=== PATIENT | male | born 1960 | race Caucasian/White ===

== ENCOUNTER 2017-09-26 07:44 | Observation (INO) ==
[2017-09-26] MEDS ORDERED: Ondansetron 4 MG/2 ML VIAL IVP ONE (08:02)
--- NOTE | 2017-09-26 08:07 | Emergency Department Note ---
Disposition Clinical Impression: Esophageal obstruction due to food impaction Food impaction of esophagus Qualifiers: Encounter type: initial encounter Qualified Code(s): T18.128A - Food in esophagus causing other injury, initial encounter Disposition: Home, Self-Care Condition: Good Instructions: Food Impaction (ED) Reasons to Return/Additional Instructions: Please follow up with your primary care provider at the next available appointment. I have provided information to the [facility]. Please return to the emergency department if you have any worsening of your symptoms including abdominal pain, vomiting, diarrhea, chest pain, shortness of breath or any other symptoms that may be concerning to you. Referrals: [facility] [Outside] Chris Ornelas DO [Primary Care Provider] - [facility] [Provider Group] Forms: ED Satisfaction Letter Time of Disposition: 10:21 General Adult HPI - General Chief complaint: ED Skin/Abscess/Foreign Body Stated complaint: possible food bolus Time Seen by Provider: 09/26/17 07:51 Source: patient, family Mode of arrival: ambulatory Limitations: no limitations Nursing Notes Reviewed: Yes Vital Signs Reviewed: Yes - History of Present Illness HPI Narrative: Patient is a 57-year-old male that presents the emergency department due to concern for possible food bolus in his esophagus. Patient states that yesterday evening around 1930 he was eating chicken and felt like something got stuck. States that he began having discomfort in his low chest epigastric region. Vision states that he did not eat anything further at that time. Patient states that he has been unable to drink any fluids because they come right back up. States that he has had difficulty swallowing his own secretion is been spitting into a bucket. Patient states that it is not painful is just a discomfort that is been constant since dinnertime last night. Patient denies ever having anything like this in the past or any interventions for food bolus. Pain Scale: 0 - Related Data Home Medications Medication Instructions Recorded Confirmed No Known Home Drugs 09/26/17 09/26/17 Allergies Allergy/AdvReac Type Severity Reaction Status Date / Time No Known Allergies Allergy Verified 09/26/17 07:45 All systems ED: reviewed and negative except as stated. Cardiovascular: Denies: chest pain Respiratory: Denies: dyspnea Gastrointestinal: Reports: abdominal pain (epigastric discomfort), other ( Cannot swallow water or his own secretions) Physical Exam - General Limitations: no limitations General appearance: alert, in no apparent distress, other (Patient is spitting into bucket) - Head Head exam: atraumatic, normocephalic - Eye Eye exam: Present: normal appearance, EOMI - Respiratory Respiratory exam: Present: normal lung sounds bilaterally. Absent: respiratory distress, wheezes - Cardiovascular Cardiovascular exam: Present: regular rate, normal rhythm, normal heart sounds, +S1, +S2 - Abdominal Exam Abdominal exam: Present: soft, Non-Tender, normal bowel sounds - Neurological Exam Neurological exam: Present: alert, oriented X3 - Psychiatric Psychiatric exam: Present: normal affect, normal mood - Skin Skin exam: Present: warm, dry, intact Course - Consultations Consultation #1: Due to the patient having a failed attempt of glucagon I called and spoke with Dr. Butts on-call endoscopist and he stated that he would see the patient. He requested that a chest x-ray be performed. This will be done here in the emergency department. Time: 08:45 Vital Signs Temperature 97.7 F 09/26/17 07:45 Pulse Rate 82 09/26/17 07:45 Respiratory Rate 16 09/26/17 07:45 Blood Pressure 152/91 09/26/17 07:45 O2 Sat by Pulse Oximetry 94 09/26/17 07:45 Temperature 97.7 F 09/26/17 08:00 Pulse Rate 80 09/26/17 09:30 Respiratory Rate 20 09/26/17 09:30 Blood Pressure 140/92 09/26/17 09:30 O2 Sat by Pulse Oximetry 98 09/26/17 09:30 Oxygen Delivery Oxygen Delivery Room Air Medical Decision Making - [facility] Narrative Medical decision making narrative: Due to the patient presenting to the emergency department for epigastric discomfort after eating chicken there is concern for possible food bolus. We will give the patient a dose of glucagon and Zofran here in the emergency department. If this is unsuccessful we will discuss this case with endoscopy. Chest x-ray showed no acute process Per radiology. The glucagon was unsuccessful at passage of the possible food bolus. I called and spoke with the on-call GI physician for endoscopy. Patient will be taken to endoscopy for evaluation of possible food bolus. Final disposition of the patient will be determined by the endoscopist. Patient will be discharged from the emergency department to endoscopy at this time. Patient is stable at the time of discharge to endoscopy. - Radiology Data Radiology results reviewed: Yes I reviewed the patient's radiology results. Chest X-Ray 09/26/17 08:48 IMPRESSION: Normal appearing chest. No acute abnormality identified. D/ / Douglas Pemberton MD / Douglas Pemberton MD Interpreting Provider: Douglas Pemberton MD
--- NOTE | 2017-09-26 08:11 | Emergency Department Note ---
Disposition Clinical Impression: Esophageal obstruction due to food impaction Disposition: Still a Patient Referrals: Chris Ornelas DO [Primary Care Provider] - Forms: ED Satisfaction Letter General Adult HPI - General Chief complaint: ED Skin/Abscess/Foreign Body Stated complaint: possible food bolus Time Seen by Provider: 09/26/17 07:51 Source: patient, family Mode of arrival: ambulatory Limitations: no limitations - History of Present Illness HPI Narrative: Attestation note I examined this patient and my medical decision-making was reviewed with the emergency medicine resident. I agree with the documented findings, disposition and treatment plan as described except to the extent set forth below. Patient seen with emergency medicine resident Dr. Les Rodriguez, Please see a copy of his note for details of the H&P, ED evaluation, management and disposition. I have independently evaluated the patient and confirmed appropriate portions of the history and physical exam. Briefly: 57-year-old male presents after eating chicken last night feels like it stuck in his throat esophagus substernally. Patient is unable to tolerate his secretions. He is able to phonate normally. He is afebrile with stable vital signs. This has not happened to him before. No known history of esophageal stricture or EGD procedures in past. We will try patient on 1 mg of IV glucagon and to reassess if unsuccessful we will contact the endoscopist microphone operator for EGD. Disposition pending Pain Scale: 0 - Related Data Home Medications Medication Instructions Recorded Confirmed No Known Home Drugs 09/26/17 09/26/17 Allergies Allergy/AdvReac Type Severity Reaction Status Date / Time No Known Allergies Allergy Verified 09/26/17 07:45 Cardiovascular: Denies: chest pain Respiratory: Denies: dyspnea Gastrointestinal: Reports: abdominal pain (epigastric discomfort), other ( Cannot swallow water or his own secretions) Past Medical History - Past Medical History Medical history: Reports: no medical history Psychiatric history: Reports: no psych history - Social History Smoking Status: Never smoker Smokeless Tobacco Status: No Alcohol use: Reports: recent Drug use: Reports: none Physical Exam - General Limitations: no limitations General appearance: alert, in no apparent distress, other (Patient is spitting into bucket) Course Vital Signs Temperature 97.7 F 09/26/17 07:45 Pulse Rate 82 09/26/17 07:45 Respiratory Rate 16 09/26/17 07:45 Blood Pressure 152/91 09/26/17 07:45 O2 Sat by Pulse Oximetry 94 09/26/17 07:45 Temperature 97.7 F 09/26/17 08:00 Pulse Rate 82 09/26/17 08:00 Respiratory Rate 16 09/26/17 08:00 Blood Pressure 152/91 09/26/17 08:00 O2 Sat by Pulse Oximetry 94 09/26/17 08:00 Oxygen Delivery Oxygen Delivery Room Air
[2017-09-26] MEDS ORDERED: *HR* Succinylcholine 200 MG/10 ML VIAL IVP ONE (10:09)
[2017-09-26] MEDS ORDERED: *HR* FentaNYL (PF) 100 MCG/2 ML VIAL ONE (10:09)
[2017-09-26] MEDS ORDERED: Lidocaine -MPF 2% 2 ML VIAL ONE (10:09)
[2017-09-26] MEDS ORDERED: *HR* Propofol 200 MG/20 ML VIAL IVP ONE (10:09)
[2017-09-26] MEDS ORDERED: Dexamethasone 4 MG/ML VIAL ONE (10:09)
[2017-09-26] MEDS ORDERED: Ondansetron 4 MG/2 ML VIAL ONE (10:09)
[2017-09-26] MEDS ORDERED: *HR* Midazolam HCl 2 MG/2 ML VIAL ONE (10:09)
--- NOTE | 2017-09-26 10:47 | Anesthesia Evaluation PreOp ---
Date of Encounter: 09/26/17 Time of Encounter: 10:45 - Past History Planned Operation: EGD for food bolus Cardiac History: Denies any Significant Hx Pulmonary History: Former smoker [employer] History: Denies Any Significant HX Other Medical History: Denies Any Significant HX Anesthesia History: No Prior Anesthetic Complications, Past Anesthesia ( colonoscopy) Alcohol Use: recent Drug use: none Medications and Allergies No Known Home Drugs 09/26/17 [History] 3 Allergy/AdvReac Type Severity Reaction Status Date / Time No Known Allergies Allergy Verified 09/26/17 07:45 - Meds/Allergy Pre-op Review Medications Reviewed: Yes Allergies Reviewed: Yes Beta Blockers on Current Med List: No Anesthesia Results - Imaging Chest x-ray: report reviewed (no acute abnormality) Anesthesia Exam Last Vital Signs Temp 97.8 F 09/26/17 10:39 Pulse 86 09/26/17 10:39 Resp 20 09/26/17 10:39 BP 138/90 09/26/17 10:39 Pulse Ox 99 09/26/17 10:39 Weight: 95 kg NPO (# of Hours): > 8 hrs - HEENT Pupil (Motor): Pupils equal, EOMI Mallampati: III Teeth: Normal Oral Opening: Greater than 3 - [employer] LOC: Oriented - Cardiac Rhythm: Regular - Pulmonary Breath Sounds: bilateral Clear Respiratory Effort: Symmetrical Anesthesia Assess/Plan ASA Score: 2 Modified [place] Scale for Level of Consciousness: Cooperative, oriented, and tranquil Anesthetic Plan: General Monitoring Plan: Standard Monitors Recovery Plan: PACU
[2017-09-26] MEDS ORDERED: cefTRIAXone 2,000 MG in 0.9 % Sodium Chloride Mini Bag 100 ML IVP ONE (11:30)
[2017-09-26] MEDS ORDERED: *HR* EPINEPHrine 1 MG/10 ML SYRINGE ONE (11:56)
[2017-09-26] MEDS ORDERED: Pantoprazole 80 MG in 0.9 % Sodium Chloride 50 ML IVPB ONE (11:58)
[2017-09-26] MEDS ORDERED: *HR* EPINEPHrine 1 MG/10 ML SYRINGE INTRATRACH PRN (12:01)
--- NOTE | 2017-09-26 12:04 | Gastroenterology Consult Note ---
Date of Encounter: 09/26/17 Time of Encounter: 10:00 - Assessment and plan (1) Esophageal obstruction due to food impaction Current Visit: Yes Status: Acute (2) Food impaction of esophagus Current Visit: Yes Status: Acute Qualifiers: Encounter type: initial encounter Qualified Code(s): T18.128A - Food in esophagus causing other injury, initial encounter - Time Spent With Patient Total time spent is greater than 50% in coordination of care (as documented) at patient's floor/unit and/or counseling patient: 25 - 35 minutes GI History of Present Illness - Data of Consult Requesting Physician: Evan Butts MD - Consult Narrative Reason for consult: Foreign body esophagus History of present illness: Mr. Clinton is a 57 year old male who ate chicken at home last night around 7 pm - and started feeling uncomfortable almost immediately. Cant swallow his saliva and keep it down. He struggled last night and finally came here this morning and we were called. He confirms dysphagia to solids for a while but, never choked like this before. Drank 2 beers yesterday afternoon. Took 2 Aleve in the morning for a headache yesterday. Drank heavily from age 19 to 28. Now drinks wine each evening - just a glass. 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 He has never been hospitalized before. No CAD, DM or any other known systemmic problems. Spitting up actively during the interview. CXR PA and lateral negative from earlier this morning. PLAN: Emergent EGD with disimpaction of FB planned (chicken). Patient has had this for 17 hours. Explained to both him and his , of increased risk of perforation of esophagus and possible surgery should that happen. Complete obstruction anticipated due to inability to keep even saliva down. Arrangements for general anesthesia made. Further recommendations post EGD. Past Med Surg Social Fam HX - Past Medical History Medical history: no medical history Psychiatric history: no psych history - Social History Smoking Status: Never smoker Smokeless Tobacco Status: No Alcohol use: recent Drug use: none - Gastrointestinal NSAID use: yes Anticoagulation Use: No Number of BM Per Day: 1 Gastrointestinal: Present: as per HPI, heartburn - Constitutional Vitals: Temp Pulse Resp BP Pulse Ox 97.7 F 96 18 134/91 92 09/26/17 12:00 09/26/17 12:00 09/26/17 12:00 09/26/17 12:00 09/26/17 12:00 Results - Diagnostic Studies Chest x-ray Status: image reviewed by me Consult Discharge Plan - Plan Referrals: Chris Ornelas DO [Primary Care Provider] -
[2017-09-26] MEDS ORDERED: Naloxone 0.4 MG/ML INJ IVP PRN (12:26)
--- NOTE | 2017-09-26 12:26 | Anesthesia Evaluation Post Op ---
Date of Encounter: 09/26/17 Time of Encounter: 12:26 - Vital Signs Vital Signs: Last Vital Signs Temp 98.7 F 09/26/17 12:22 Pulse 92 09/26/17 12:22 Resp 18 09/26/17 12:22 BP 133/89 09/26/17 12:22 Pulse Ox 92 09/26/17 12:22 - Lungs Lungs: Clear Ascult./Percussion - Airway Airway: Non-obstructed - Cardiovascular Regular Rate - Mental Status Mental Status: Alert & Oriented, Answers Appropriately - Pain Pain Scale: 2 - Nausea Vomiting Nausea Vomiting: Not Present - Hydration Hydration: NPO - Discharge PostOp Status: Transfer Patient to floor
--- NOTE | 2017-09-26 12:30 | Internal Med History&Physical ---
<IrisCoco Tejinder - Last Filed: 09/26/17 12:54> Date of Encounter: 09/26/17 Time of Encounter: 12:29 Internal Medicine - H&P: HPI Chief complaint: Food bolus in esophagus Admitted From: Home Plans for Post Hospital Care: Home History of present illness: Mr. Clinton is a 57 year old male with only hx of past smoker. Presented to the ED today with c/o of food being stuck in his esophagus since yesterday after eating chicken. The patient stated that while eating dinner he had a piece of chicken, stuck in his throat, since then he has been unable to swallow any liquids or his saliva. Patient indicated he had been spitting those fluids out. Patient was taken to surgery with Dr. Butts, EGD in which food in the esophagus was removed and chronic gastritis was found biopsy was taken at that time patient will be nothing by mouth started on a PPI and did receive 1 dose of Rocephin in PACU. Patient to be monitored overnight with possible discharge tomorrow. The patient is awake and alert. O2 sat 89-90%, oxygen will be placed to maintain 94% o2 saturation. The patient denies pain and discomfort. Labs for morning. Past Med Surg Social Fam HX - Past Medical History Medical history: no medical history Psychiatric history: no psych history - Social History Smoking Status: Never smoker Smokeless Tobacco Status: No Alcohol use: recent Drug use: none Internal Medicine - H&P: Meds No Known Home Drugs 09/26/17 [History] 3 Allergy/AdvReac Type Severity Reaction Status Date / Time No Known Allergies Allergy Verified 09/26/17 11:39 All Systems PM: A 10-system review of systems was performed and is negative for pertinent findings except as documented above in the HPI. - Constitutional Constitutional: no chills, no fever(s), no night sweats - EENT Eyes: no change in vision, no discharge, no pain, no photophobia Ears: no ear discharge, no ear pain, no tinnitus Nose, mouth and throat: dysphagia (D/t food bolus in esophagus), neck pain, no nasal discharge, no sore throat - Cardiovascular Cardiovascular ROS IM: no chest pain, no diaphoresis, no dyspnea, no lightheadedness, no palpitations, no syncope - Respiratory Respiratory: no cough, no dyspnea, no wheezing, no excessive phlegm production - Gastrointestinal Gastrointestinal: no abdominal pain, no diarrhea, no hematemesis, no hematochezia, no melena, no nausea, no vomiting - Musculoskeletal Musculoskeletal ROS IM: no numbness, no tingling - Integumentary Integumentary IM: no rash, no unusual bruising - Neurological Neurological ROS: no confusion, no convulsions, no focal weakness, no numbness, no tingling, no tremor(s) - Hematologic/Lymphatic Hematologic/Lymphatic: no easy bruising - Constitutional Vitals: Temp Pulse Resp BP Pulse Ox 98.7 F 92 18 133/89 92 09/26/17 12:22 09/26/17 12:22 09/26/17 12:22 09/26/17 12:22 09/26/17 12:22 General appearance: Present: A&O X 3 - Head Head exam: Present: atraumatic, normocephalic - Eye Eye exam: Present: PERRL, conjuntiva pink, sclera anicteric Pupils: Present: PERRL - Neck Neck exam general surgery: Present: supple, trachea midline. Absent: lymphadenopathy - Respiratory Respiratory exam: Present: CTAB (O2 sat 90%, oxygen prn). Absent: accessory muscle use, rales, rhonchi, wheezes - Cardiovascular Cardiovascular exam: Present: RRR, +S1, +S2. Absent: diastolic murmur, gallop, rubs, systolic murmur - GI/Abdominal GI/Abdominal exam: Present: normal bowel sounds, soft, no peritoneal signs. Absent: distended, tenderness - Extremities Exam Extremities exam: Present: warm, radial pulses palpable and symmetrical. Absent : calf tenderness, cyanotic, pedal edema - Neurological Exam Neurological exam: Present: CN II-XII intact, oriented X3, no focal deficits. Absent: pronater drift, facial droop, speech deficit - Skin Skin exam: Present: dry, intact - Assessment and plan (1) Food impaction of esophagus Current Visit: Yes Status: Acute Qualifiers: Encounter type: initial encounter Qualified Code(s): T18.128A - Food in esophagus causing other injury, initial encounter (2) Esophageal obstruction due to food impaction Current Visit: Yes Status: Acute Assessment and plan: Dr. Butts managing. Food bolus removed via EGD. Patient is pain-free at this time NPO Oxygen prn to keep sats gt 94% History of smoking-Quit (3) Chronic gastritis Current Visit: Yes Status: Acute Assessment and plan: Former smoker EGD revealed chronic gastritis Will start the patient on PPI as recommended by Dr. Butts. Qualifiers: Gastritis bleeding: presence of bleeding unspecified Qualified Code(s): K29.50 - Unspecified chronic gastritis without bleeding - Time Spent With Patient Total time spent is greater than 50% in coordination of care (as documented) at patient's floor/unit and/or counseling patient: less than 15 minutes <Tiffany Rose - Last Filed: 09/26/17 14:13> Date of Encounter: 09/26/17 Time of Encounter: 13:30 Internal Medicine - H&P: HPI History of present illness: Mr. Clinton is a 57 year old male All Systems PM: A 10-system review of systems was performed and is negative for pertinent findings except as documented above in the HPI. - Constitutional Vitals: Temp Pulse Resp BP Pulse Ox 98.7 F 92 18 133/89 92 09/26/17 12:22 09/26/17 12:22 09/26/17 12:22 09/26/17 12:22 09/26/17 12:22 - Attending Attestation I examined this patient and my medical decision-making was reviewed with the Nurse Practitioner. I agree with the documented findings, disposition and treatment plan as described with any changes as documented below. 57-year-old male presented to the ER after choking on some food last night with continued abdominal discomfort and increased salivation. He was evaluated by GI and taken to the OR for upper GI endoscopy. He was found to have some gastritis and esophageal tear and food particles were removed. He is feeling much better now. He denies any chest pain or palpitations. Abdominal discomfort is improving. On examination, patient is awake and alert. Abdomen is soft, nontender. Family history reviewed and found to be noncontributory at this time. Esophageal obstruction due to choking on food: Status post upper GI endoscopy. Observation overnight. Keep nothing by mouth for now. Place patient on PPI. Follow GI recommendations. Will repeat chest x-ray tomorrow to look for any aspiration pneumonitis or pneumonia. Hypoxia while lying down: Patient having episodes of hypoxia when he falls asleep. He may have underlying sleep apnea. Recommended sleep study as outpatient. - Assessment and plan (1) Esophageal obstruction due to food impaction Current Visit: Yes Status: Acute - Time Spent With Patient Total time spent is greater than 50% in coordination of care (as documented) at patient's floor/unit and/or counseling patient:
[2017-09-26] MEDS: 0.9 % Sodium Chloride 1,000 ML IVC SCH ×2 (13:13→20:47)
[2017-09-26] MEDS: Pantoprazole 40 MG VIAL IVP SCH (18:23)
[2017-09-27] MEDS: 0.9 % Sodium Chloride 1,000 ML IVC SCH (04:44)
[2017-09-27] MEDS: Pantoprazole 40 MG VIAL IVP SCH (05:19)
[2017-09-27 06:13] LABS: Basophils % 0.2 %; Hematocrit 43.1 % (37.5-50.1); Hemoglobin 14.7 g/dL (12.9-16.9); Immature Granulocytes % 0.3 % (0-4); Lymphocytes # 1.3 K/mcL (0.6-4.6); Lymphocytes % 11.4 %; Mean Corpuscular HGB Conc 34.1 g/dL (31.6-35.5); Mean Corpuscular Hemoglobin 30.6 pg (28.0-33.3); Mean Corpuscular Volume 89.6 fL (83.0-100.0); Mean Platelet Volume 10.7 fL (9.4-12.4); Monocytes # 0.8 K/mcL (0.0-1.3); Monocytes % 6.8 %; Platelet Count 177 K/mcL (140-400); Red Blood Count 4.81 M/mcL (4.19-5.50); Segmented Neutrophils % 81.3 %
[2017-09-27 06:31] LABS: BUN/Creatinine Ratio 20 (6-26); Blood Urea Nitrogen 15 mg/dL (6-20); Calcium 8.6 mg/dL (8.6-10.3); Carbon Dioxide 23 mEq/L (23-29); Chloride 108 mEq/L (98-107); Glucose 138 mg/dL (70-105); Osmolality,Calculated 291 (280-300); Potassium 4.1 mEq/L (3.5-5.1); Sodium 139 mEq/L (136-145); eGFR For African Americans > 60 (> 60); eGFR For Non-African Americans > 60 (> 60)
[2017-09-27 10:30] VITALS: BP 115/73
[2017-09-27] MEDS ORDERED: Piperacillin/Tazobactam 3.375 GM in 0.9 % Sodium Chloride Mini Bag 100 ML IVPB SCH (11:00)
--- NOTE | 2017-09-27 14:30 | Discharge Summary ---
- NOTES TO OUTPATIENT PROVIDER Notes to Outpatient Provider: FB/chicken piece in esophagus and dysphagia, had EGD, FB removed; now on PPI for chronic gastritis; needs outpatient GI f/up; Date of Encounter: 09/27/17 Time of Encounter: 14:26 - Discharge Diagnosis (1) Esophageal obstruction due to food impaction Priority: Primary Status: Acute (2) Tobacco abuse Priority: Secondary Status: Chronic (3) Chronic gastritis Priority: Secondary Status: Chronic Qualifiers: Gastritis type: unspecified gastritis Gastritis bleeding: without bleeding Qualified Code(s): K29.50 - Unspecified chronic gastritis without bleeding Hospital course: Mr. Clinton is a 57 year old male admitted after he choked on a piece of chicken, and noted to have almost complete obstruction of esophagus with excess salivation and dysphagia. GI was consulted, underwent EGD with FB removal, also had chronic gastritis. He is stable, tolerates oral diet, d/w GI, discharging on daily PPI, with outpatient GI f/up. Discharge discussed with: patient, nurse, pre sales technical consultant - Time Spent with Patient Total time spent providing and/or coordinating discharge services: Greater than 30 minutes (40 min) - Discharge Medications Prescriptions: Omeprazole [PriLOSEC] 20 mg PO DAILY #30 cap Home Medications: Omeprazole [PriLOSEC] 20 mg PO DAILY #30 cap 09/27/17 [Rx] Allergies/Adverse Reactions: 3 Allergy/AdvReac Type Severity Reaction Status Date / Time No Known Allergies Allergy Verified 09/26/17 11:39 Date of admission: 09/26/17 11:02 Primary care physician: Chris Ornelas DO Discharging clinician: Viv Morse Anticipated date of discharge: 09/27/17 - Constitutional Vitals: Temp Pulse Resp BP Pulse Ox 97.7 F 89 16 115/73 95 09/27/17 10:23 09/27/17 10:23 09/27/17 10:23 09/27/17 10:23 09/27/17 10:23 General appearance: Present: A&O X 3, answers questions appropriately - Cardiovascular Cardiovascular exam: Present: RRR, +S1, +S2. Absent: diastolic murmur, gallop, rubs, systolic murmur - Patient Status Disposition: Home, Self-Care Condition: Good Functional capacity at discharge: independent ambulation Overall status at discharge: patient is progressing back to baseline - Discharge Instructions Follow Up With: Evan Butts MD [Partnered Physician] - (Web Request. Office will call with date and time of appt. Thank you) Chris Ornelas DO [Primary Care Provider] - 10/01/17 11:00 am Forms: Inpatient Work/School Release Additional Instructions: F/up with GI in 2-3 weeks, Start with soft foods such as mashed potatoes as tolerated. - Diet and Activity Activity: resume usual activities as tolerated Diet: low fat, low cholesterol - VTE Documentation of Mechanical Device: Venous foot pump, device
== END 2017-09-27 15:02 | disposition home or self-care (01) ==
LOC: EMEROO 07:44 → 3ANU 07:44 → EMEROO 10:25 → SUATTDRO 11:02
PROVIDERS: ADMIT Internal Medicine; ATTEND Internal Medicine

== ENCOUNTER 2020-04-02 09:21 | Observation (INO) ==
[2020-04-02 09:43] LABS: Basophils # 0.1 K/mcL (0.0-0.2); Basophils % 0.7 %; Eosinophils # 0.2 K/mcL (0.0-0.6); Eosinophils % 2.7 %; Hematocrit 50.6 % (37.5-50.1); Hemoglobin 17.2 g/dL (12.9-16.9); Immature Granulocytes % 0.2 % (0-4); Lymphocytes # 2.8 K/mcL (0.6-4.6); Lymphocytes % 30.8 %; Mean Corpuscular Hemoglobin 30.7 pg (28.0-33.3); Mean Corpuscular Volume 90.4 fL (83.0-100.0); Mean Platelet Volume 10.1 fL (9.4-12.4); Monocytes # 0.8 K/mcL (0.0-1.3); Monocytes % 9.3 %; Platelet Count 219 K/mcL (140-400); Red Cell Distribution Width 12.7 % (11.5-14.5); Segmented Neutrophils % 56.3 %; White Blood Count 8.9 K/mcL (4.3-11.1)
[2020-04-02] MEDS ORDERED: 0.9 % Sodium Chloride 1,000 ML IVC ONE (09:43)
[2020-04-02 09:47] LABS: Prothrombin Time 11.7 Seconds (9.4-12.1)
[2020-04-02 09:49] LABS: Activated Partial Thrombo Time 28.8 Seconds (26.0-36.0)
[2020-04-02 10:20] LABS: BUN/Creatinine Ratio 16 (6-26); Blood Urea Nitrogen 15 mg/dL (6-20); Calcium 9.5 mg/dL (8.6-10.3); Carbon Dioxide 25 mEq/L (23-29); Chloride 106 mEq/L (98-107); Glucose 180 mg/dL (70-105); Osmolality,Calculated 293 (280-300); Potassium 4.4 mEq/L (3.5-5.1); Sodium 139 mEq/L (136-145); Thyroid Stimulating Hormone 1.365 mcIU/mL (0.340-5.600); Troponin I 0.09 ng/mL (< 0.04); eGFR For African Americans > 60 (> 60); eGFR For Non-African Americans > 60 (> 60)
[2020-04-02] MEDS ORDERED: Aspirin 81 MG TAB.CHEW PO ONE (10:25)
[2020-04-02] MEDS ORDERED: Naloxone 0.4 MG/ML INJ IVP PRN (14:40)
[2020-04-02] MEDS ORDERED: Perflutren Lipid Microsphere 1.3 ML in 0.9 % Sodium Chloride 8.7 ML IVP PRN (15:51)
[2020-04-02 16:38] LABS: Influenza A PCR Negative (Negative); Influenza B PCR Negative (Negative); Resp. Syncytial Virus PCR Negative (Negative)
[2020-04-02 16:42] LABS: SARS-CoV-2 by PCR (In House) Negative (Negative)
[2020-04-02] MEDS: 0.9 % Sodium Chloride 1,000 ML IVC SCH ×2 (16:58→19:55)
[2020-04-02] MEDS: *HR* Enoxaparin 100 MG/ML SYRINGE SQ SCH (19:46)
[2020-04-03 03:11] LABS: Basophils # 0.1 K/mcL (0.0-0.2); Eosinophils # 0.2 K/mcL (0.0-0.6); Eosinophils % 3.8 %; Hematocrit 46.7 % (37.5-50.1); Hemoglobin 15.8 g/dL (12.9-16.9); Immature Granulocytes % 0.2 % (0-4); Lymphocytes # 2.7 K/mcL (0.6-4.6); Lymphocytes % 43.4 %; Mean Corpuscular HGB Conc 33.8 g/dL (31.6-35.5); Mean Corpuscular Hemoglobin 30.9 pg (28.0-33.3); Mean Corpuscular Volume 91.2 fL (83.0-100.0); Mean Platelet Volume 10.6 fL (9.4-12.4); Monocytes # 0.5 K/mcL (0.0-1.3); Monocytes % 8.5 %; Neutrophils # 2.7 K/mcL (1.6-8.9); Platelet Count 187 K/mcL (140-400); Red Blood Count 5.12 M/mcL (4.19-5.50); Red Cell Distribution Width 12.8 % (11.5-14.5); Segmented Neutrophils % 43.1 %; White Blood Count 6.3 K/mcL (4.3-11.1)
[2020-04-03 03:35] LABS: Troponin I 0.06 ng/mL (< 0.04)
[2020-04-03 03:36] LABS: BUN/Creatinine Ratio 16 (6-26); Blood Urea Nitrogen 14 mg/dL (6-20); Calcium 8.5 mg/dL (8.6-10.3); Carbon Dioxide 22 mEq/L (23-29); Chloride 109 mEq/L (98-107); Chol/HDL Ratio 3.9 (0-4.9); Cholesterol 186 mg/dL (< 200); Glucose 104 mg/dL (70-105); HDL Cholesterol 48 mg/dL (40-59); LDL Cholesterol,Calculated 100 mg/dL (< 100); Osmolality,Calculated 291 (280-300); Potassium 3.9 mEq/L (3.5-5.1); Sodium 140 mEq/L (136-145); Triglycerides 188 mg/dL (< 150); eGFR For African Americans > 60 (> 60); eGFR For Non-African Americans > 60 (> 60)
[2020-04-03] MEDS: *HR* Enoxaparin 100 MG/ML SYRINGE SQ SCH ×2 (05:47→17:43)
[2020-04-03 09:26] LABS: Estimated Average Glucose 146 mg/dl; Hemoglobin A1C 6.7 %
[2020-04-03] MEDS: Aspirin Enteric Coated 81 MG Tablet PO SCH (09:57)
[2020-04-03] MEDS: 0.9 % Sodium Chloride 1,000 ML IVC SCH (09:58)
[2020-04-03] MEDS ORDERED: *HR* Dextrose 50 % in Water (Vial) 50 ML VIAL IVP PRN (10:03)
[2020-04-03] MEDS ORDERED: Dextrose Gel 15 GM/37.5 ML TUBE PO PRN ×2 (10:03)
[2020-04-03] MEDS ORDERED: D5% in Water 1,000 ML IVC PRN (10:03)
[2020-04-03] MEDS: Insulin LISPRO 300 UNITS/3 ML VIAL SUBQ SCH ×2 (14:02→16:26)
[2020-04-03] MEDS ORDERED: Insulin LISPRO 300 UNITS/3 ML VIAL SUBQ SCH (21:00)
[2020-04-04] MEDS: *HR* Enoxaparin 100 MG/ML SYRINGE SQ SCH (05:09)
[2020-04-04] MEDS: 0.9 % Sodium Chloride 1,000 ML IVC SCH (05:09)
[2020-04-04] MEDS ORDERED: Regadenoson 0.4 MG/5 ML SYRINGE IVP ONE (06:04)
[2020-04-04 06:54] LABS: BUN/Creatinine Ratio 15 (6-26); Blood Urea Nitrogen 14 mg/dL (6-20); Carbon Dioxide 24 mEq/L (23-29); Chloride 105 mEq/L (98-107); Glucose 116 mg/dL (70-105); Osmolality,Calculated 287 (280-300); Potassium 4.2 mEq/L (3.5-5.1); Sodium 138 mEq/L (136-145); Troponin I < 0.03 ng/mL (< 0.04); eGFR For African Americans > 60 (> 60); eGFR For Non-African Americans > 60 (> 60)
[2020-04-04] MEDS: Insulin LISPRO 300 UNITS/3 ML VIAL SUBQ SCH ×2 (07:36→12:15)
[2020-04-04] MEDS: Aspirin Enteric Coated 81 MG Tablet PO SCH (09:15)
[2020-04-04 11:40] VITALS: BP 135/92
[2020-04-05] MEDS ORDERED: *HR* Metformin 500 MG TABLET PO SCH (08:00)
== END 2020-04-04 14:04 | disposition home or self-care (01) ==
LOC: EMEROOARM 09:21 → INTOOBSV 17:00 → 3BNU 17:00
PROVIDERS: ADMIT Internal Medicine; ATTEND Internal Medicine